=== PATIENT | male | born 1970 ===

== ENCOUNTER 2017-10-02 08:15 | Emergency (ER) | payer OTHER ==
[2017-10-02 08:25] VITALS: BMI 29.2
--- NOTE | 2017-10-02 09:31 | C.PDOC ---
History Of Present Illness 46 y/o male presents to ED with complaints of itchy rash to face, chest and back since yesterday. 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 Patient reports he took allergy otc medication and had relief but yesterday was cooking shrimp and patient was in same room, did nopt eat any shrimp, when rash reoccurred. Patient denies fever, sob. nausea, vomiting, any swelling to lips or tongue or any other complaints at this time. 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) Family History: States: No Known Family Hx - Social History Hx Tobacco Use: No Hx Alcohol Use: No Hx Substance Use: No - Immunization History Hx Tetanus Toxoid Vaccination: No Hx Influenza Vaccination: No Hx Pneumococcal Vaccination: No Review Of Systems Constitutional: Negative for: Fever, Chills Cardiovascular: Negative for: Chest Pain Respiratory: Negative for: Shortness of Breath Gastrointestinal: Negative for: Nausea, Vomiting Skin: Positive for: Rash Neurological: Negative for: Weakness, Numbness Physical Exam - Physical Exam Additional Physical Exam Comments: Constitutional: No acute distress. WDWN. Head: Normocephalic. Atraumatic. Eyes: PERRL. EOMI. ENT: Moist mucous membranes. no swelling to lips, tongue or uvula Neck: Supple. Cardiovascular: Regular rate and rhythm. Chest: No tenderness. Respiratory: Clear to auscultation bilaterally. no wheezing. GI: Soft. Nontender. Nondistended. Normoactive bowel sounds. No rebound. No guarding. Back: No CVA and no mid-line tenderness. Musculoskeletal: No tenderness or swelling of extremities. Skin: diffuse Urticarial rash Neurologic: Alert, no focal deficit. ED Course And Treatment O2 Sat by Pulse Oximetry: 97 (RA) Pulse Ox Interpretation: Normal Medical Decision Making Medical Decision Making: Plan: Pepcid Progress: Patient not given Benadryl at ED because he is driving home, patient will be discharged home with Benadryl prescription. Disposition Counseled Patient/Family Regarding: Diagnosis, Need For Followup, Rx Given - Disposition Referrals: [facility] [Outside] [facility] [Outside] Disposition: HOME/ ROUTINE Disposition Time: 10:06 Condition: IMPROVED Additional Instructions: Por favor, tome difenhidramina por va oral cada 6 horas lacho los prximos 2 schumacher. No conduzca ni maneje maquinaria cuando tome esto. Necesitas jyoti a un alergista Seguimiento en la clnica mdica para luis referencia a shellie. Si contin a trabajando con camarones y mariscos, bulmaro reacciones alrgicas a esto pueden empeorar y ser ms peligrosas para usted. Debe regresar a la becka de urgencias por cualquier erupcin cutnea que empeore, hinchazn de los labios, lengua o garganta, dificultad para respirar o tragar o cualquier otro sntoma relacionado. Please take diphenhydramine by mouth every 6 hours for next [address] machinery when taking this. You need to see an dairy bacteriologist. Follow up in medical clinic for a referral to one. 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 You need to return to ER for any worsening rash, swelling to lips, tongue or in throat, trouble breathing or swallowing or any other concerning symtpoms. Prescriptions: DiphenhydrAMINE [Benadryl] 25 mg PO Q6 #30 cap Famotidine [Pepcid] 20 mg PO DAILY #14 tab predniSONE [predniSONE Tab] 40 mg PO DAILY #10 tab Instructions: Urticaria (GEN), Food Allergy (ED) Forms: Gen Discharge Inst Libyan, Custom Coup (Libyan), Work Excuse Print Language: QATARI - Clinical Impression Clinical Impression: Allergic urticaria, Allergic reaction to shellfish - PA / [employer] / Resident Statement MD/DO has reviewed & agrees with the documentation as recorded. - Scribe Statement The provider has reviewed the documentation as recorded by the Dali Lr All medical record entries made by the Dali were at my direction and personally dictated by me. I have reviewed the chart and agree that the record accurately reflects my personal performance of the history, physical exam, medical decision making, and the department course for this patient. I have also personally directed, reviewed, and agree with the discharge instructions and disposition.
[2017-10-02 10:27] VITALS: BP 142/94; PULSE 55; RESP 16; TEMP 98.8
[2017-10-03 15:38] VITALS: O2SAT 97
== END 2017-10-02 10:20 | disposition home or self-care (01) ==
LOC: C.ER 08:15
DX: L50.0 Allergic urticaria (principal); T78.1XXA Other adverse food reactions, not elsewhere classified, initial encounter